=== PATIENT | female | born 1975 | race Two or more races ===

== ENCOUNTER 2022-05-21 07:17 | Emergency (ER) | payer OTHER ==
--- NOTE | 2022-05-21 07:47 | ED Physician Documentation ---
PD HPI FEMALE - Stated complaint Stated Complaint: FEMALE - Chief complaint Chief Complaint: UTI - History obtained from History obtained from: Patient - Additional information Additional information: Patient is a 46-year-old female presenting for evaluation of blood-tinged urine that she noticed last night. Patient is visiting from the [facility] [place]. She urinated yesterday evening and noticed a reddish appearance to her urine but denies blood, clots or any discomfort with urination. She again noticed it this morning around 6 AM when she woke up. She has since urinated again and reports that it looks much clearer now. She denies again anyPain or discomfort with urination, urinary frequency or urgency.She has a history of Crohn's and is on mesalamine; denies blood thinner use. She denies fever, chest pain, difficulty breathing, abdominal pain, flank pain. Denies concern for vaginal bleeding, rectal bleeding. Has not noticed any blood in her underwear. Denies any pelvic discomfort.Denies history of similar symptoms. Review of Systems Constitutional: denies: Fever Nose: denies: Congestion Cardiac: denies: Chest pain / pressure Respiratory: denies: Dyspnea, Cough GI: denies: Abdominal Pain, Vomiting, Diarrhea, Bloody / black stool : reports: Hematuria. denies: Dysuria, Frequency, Unable to Void Musculoskeletal: denies: Back pain Neurologic: denies: Generalized weakness PD PAST MEDICAL HISTORY - Past Medical History Past Medical History: Yes Cardiovascular: None Respiratory: None Neuro: None Endocrine/Autoimmune: None GI: Crohn's disease CARD LACER JACQUARD: Other : None HEENT: None Psych: None Musculoskeletal: None Derm: None Other Past Medical History: L breast lump - Past Surgical History Past Surgical History: Yes /CARD LACER JACQUARD: Other - Allergies Allergies/Adverse Reactions: Allergies Allergy/AdvReac Type Severity Reaction Status Date / Time No Known Drug Allergies Allergy Verified 05/21/22 07:25 - Social History Does the pt smoke?: No Smoking Status: Never smoker Does the pt drink ETOH?: No Does the pt have substance abuse?: No - Immunizations Immunizations are current?: Yes - POLST Patient has POLST: No PD ED PE NORMAL - General General: Alert and oriented X 3, No acute distress, Well developed/nourished - HEENT HEENT: Atraumatic, Moist mucous membranes - Neck Neck: Supple, no meningeal sign - Cardiac Cardiac: RRR, Strong equal pulses - Respiratory Respiratory: No respiratory distress, Clear bilaterally - Abdomen Abdomen: Normal bowel sounds, Soft, Non tender, Non distended - Back Back: No CVA TTP - Derm Derm: Warm and dry - Extremities Extremities: No edema - Neuro Neuro: Normal speech Results - Vitals Vitals: Vital Signs - 24 hr 05/21/22 05/21/22 07:23 08:43 Temperature 35.8 C L Heart Rate 68 Respiratory 16 Rate Blood Pressure 148/91 H 125/73 O2 Saturation 100 Oxygen O2 Source Room air - Labs Labs: Laboratory Tests 05/21/22 05/21/22 05/21/22 07:25 07:49 07:49 WBC 5.3 RBC 4.77 Hgb 12.9 Hct 39.6 MCV 83.0 MCH 27.0 MCHC 32.6 RDW 14.5 Plt Count 264 MPV 9.7 Neut # (Auto) 3.0 Lymph # (Auto) 1.8 [place] # (Auto) 0.4 Eos # (Auto) 0.1 Baso # (Auto) 0.0 Absolute Nucleated RBC 0.00 Nucleated RBC % 0.0 Sodium 136 Potassium 3.8 Chloride 104 Carbon Dioxide 26 Anion Gap 6.0 BUN 12 Creatinine 0.6 Estimated GFR (MDRD) 109 Glucose 114 H Calcium 9.0 Urine Color YELLOW Urine Clarity CLEAR Urine pH 6.0 Ur Specific [place] <=1.005 Urine Protein NEGATIVE Urine Glucose (UA) NEGATIVE Urine Ketones NEGATIVE Urine Occult Blood SMALL H Urine Nitrite NEGATIVE Urine Bilirubin NEGATIVE Urine Urobilinogen 0.2 (NORMAL) Ur Leukocyte Esterase NEGATIVE Urine RBC 0-5 Urine WBC 0-3 Ur Squamous Epith Cells NONE SEEN Urine Bacteria None Seen Ur Microscopic Review INDICATED Urine Culture Comments NOT INDICATED Urine HCG, Qual NEGATIVE PD MEDICAL DECISION MAKING - ED course Complexity details: reviewed results, re-evaluated patient, d/w patient ED course: Patient Presenting for evaluation of possible blood in her urine.Urinalysis with small amount of occult blood but no RBCs. CBC and BMP are normal. Patient is feeling well with no other symptoms here and has reported her urine has cleared up since last night.Does not have clinical symptoms to suggest rhabdomyolysis and has preserved renal function.As her symptoms are improving, do not feel she needs further imaging or work-up today. Instructed on need for close follow-up with primary care doctor as well as concerning symptoms to return for. Departure - Departure Disposition: 01 Home, Self Care Clinical Impression: Hematuria, microscopic Condition: Stable Instructions: ED Hematuria Comments: You were evaluated for blood in your urine which appears to be improving. Your urine analysis shows small amount of occult blood But is otherwise normal. Your CBC and basic metabolic panel are also normal. As your symptoms appear to be improving, I feel that you are safe for discharge today. I would recommend follow-up in the next few weeks with a primary care provider to see if the small amount of blood has completely resolved. If you have noticed any worsening bleeding, develop any discomfort, fevers or any other symptoms that concern you please return to the emergency department.
[2022-05-21 07:54] LABS: BASOPHILS % (AUTO) 0.8 %; EOSINOPHILS # (AUTO) 0.1 10^3/uL (0.0-0.7); EOSINOPHILS % (AUTO) 2.5 %; HCT - HEMATOCRIT 39.6 % (37.0-47.0); HGB - HEMOGLOBIN 12.9 g/dL (12.0-16.0); LYMPHOCYTES # (AUTO) 1.8 10^3/uL (1.5-3.5); MEAN CORPUSCULAR HGB CONC 32.6 g/dL (32.0-36.0); MEAN PLATELET VOLUME 9.7 fL (7.9-10.8); MONOCYTES # (AUTO) 0.4 10^3/uL (0.0-1.0); MONOCYTES % (AUTO) 7.5 %; PLT - PLATELET COUNT 264 10^3/uL (130-450); RED BLOOD COUNT 4.77 10^6/uL (4.20-5.40); RED CELL DISTRIBUTION WIDTH 14.5 % (12.0-15.0); WHITE BLOOD COUNT 5.3 x10^3/uL (4.8-10.8)
[2022-05-21 08:00] LABS: BILIRUBIN,URINE NEGATIVE (NEGATIVE); GLUCOSE, URINE (UA) NEGATIVE (NEGATIVE); KETONES,URINE (UA) NEGATIVE (NEGATIVE); LEUKOCYTE ESTERASE, URINE NEGATIVE (NEGATIVE); NITRITE,URINE NEGATIVE (NEGATIVE); OCCULT BLOOD,URINE SMALL (NEGATIVE); PROTEIN,URINE NEGATIVE (NEGATIVE); UROBILINOGEN,URINE 0.2 (NORMAL) E.U./dL (NORMAL)
[2022-05-21 08:14] LABS: CREATININE 0.6 mg/dL (0.4-1.0); POTASSIUM 3.8 mmol/L (3.5-5.0)
[2022-05-21 08:16] LABS: CLARITY,URINE CLEAR (CLEAR); HCG UR QUAL NEGATIVE
[2022-05-21 08:17] LABS: BACTERIA,URINE None Seen /HPF (None Seen); RBC,URINE 0-5 /HPF (0-5); SQUAMOUS EPITHELIAL CELL,UR NONE SEEN (<= Few); WBC,URINE 0-3 /HPF (0-5)
[2022-05-21 08:44] VITALS: BP 125/73
== END 2022-05-21 08:45 | disposition home or self-care (01) ==
LOC: ED 07:17
DX: R31.29 Other microscopic hematuria (principal)
CPT/HCPCS: 36415; 80048; 81001; 81003; 81025; 85025; 87086; 99282; 99283